=== PATIENT | male | born 1995 | race Caucasian/White ===

== ENCOUNTER 2020-08-06 09:59 | Outpatient (CLI) | payer BC ==
[2020-08-06 21:53] LABS: SARS-CoV-2 PCR by NAA Not Detected (NotDetected)
== END 2020-08-06 10:00 | disposition home or self-care (01) ==
LOC: LABBT 09:59
PROVIDERS: ATTEND Student in an Organized Health Care Education/Training Program
DX: R22.1 Localized swelling, mass and lump, neck (principal)
CPT/HCPCS: 87635; U0003; U0005